=== PATIENT | female | born 1975 | race Two or more races ===

== ENCOUNTER 2021-07-05 16:59 | Emergency (ER) | payer MEDICAID, OTHER ==
[~2021-07-05] VITALS: Ht 157.5 cm; Wt 65.8 kg
[2021-07-05 17:20] VITALS: BP 130/83
[2021-07-05] MEDS ORDERED: ACETAMINOPHEN 500 MG TAB PO ONE (17:30)
== END 2021-07-05 18:51 | disposition home or self-care (01) ==
LOC: ER 16:59
DX: S42.124A Nondisplaced fracture of acromial process, right shoulder, initial encounter for closed fracture (principal); S22.31XA Fracture of one rib, right side, initial encounter for closed fracture; S80.01XA Contusion of right knee, initial encounter; J45.909 Unspecified asthma, uncomplicated; W11.XXXA Fall on and from ladder, initial encounter; Y93.89 Activity, other specified; Y92.89 Other specified places as the place of occurrence of the external cause; Y99.8 Other external cause status
CPT/HCPCS: 29105; 73030; 73200